=== PATIENT | female | born 1935 | race Hispanic/Latino ===

== ENCOUNTER 2017-08-01 12:52 | Outpatient (CLI) | payer MEDICARE, BC | END 2017-08-01 12:53 | disposition home or self-care (01) | LOC: BICMAMMO 12:52 | PROVIDERS: ATTEND Internal Medicine | DX: Z12.31 Encounter for screening mammogram for malignant neoplasm of breast (principal) | CPT/HCPCS: 77063 ==

== ENCOUNTER 2019-09-23 00:48 | Emergency (ER) | payer MEDICARE, BC ==
[2019-09-23 01:22] LABS: #Eosinphils 0.1 thou/uL (0.0-0.7); #Lymphocytes 2.2 thou/uL (1.20-3.40); #Monocytes 0.5 thou/uL (0.11-0.59); #Neutrophils 2.8 thou/uL (1.40-6.50); %Basophils 0.9 % (0.0-1.0); %Eosinophils 1.4 % (0.0-10.0); %Lymphocytes 38.6 % (21.0-51.0); %Monocytes 8.5 % (0.0-10.0); %Neutrophils 50.7 % (42.0-75.0); Hemoglobin 13.6 g/dL (12.0-16.0); Mean Corpuscular Hemoglobin 32.4 pg (27.0-31.0); Mean Corpuscular Volume 98.1 fL (78.0-98.0); Mean Platelet Volume 7.1 fL (7.4-10.4); Platelet Count 241 thou/uL (130-400); RBC Distribution Width 11.8 % (11.5-14.5); Red Blood Cell (RBC) Count 4.21 mill/uL (4.20-5.40); White Blood Cell (WBC) Count 5.6 thou/uL (4.8-10.8)
[2019-09-23 01:50] LABS: ALT (SGPT) 16 U/L (8-55); AST (SGOT) 26 U/L (5-34); Albumin 4.5 g/dL (3.4-4.8); Alkaline Phosphatase 61 U/L (40-110); Anion Gap 15 mmol/L (10-20); BUN (Urea Nitrogen) 12 mg/dL (9.8-20.1); Bilirubin, Total 0.7 mg/dL (0.2-1.2); CK (CPK) 125 U/L (29-168); Calc. Creatinine Clearance 0 mL/min (70-130); Calcium 9.5 mg/dL (7.8-10.44); Carbon Dioxide 24 mmol/L (23-31); Chloride 99 mmol/L (98-107); Estimated GFR-MDRD 70; Globulin 2.9 g/dL (2.4-3.5); Glucose 115 mg/dL (83-110); Potassium 3.9 mmol/L (3.5-5.1); Protein, Total 7.4 g/dL (6.0-8.3); Sodium 134 mmol/L (136-145)
== END 2019-09-23 02:36 | disposition home or self-care (01) ==
LOC: ERS 00:48
DX: I10 Essential (primary) hypertension (principal); Z85.3 Personal history of malignant neoplasm of breast; Z79.899 Other long term (current) drug therapy
CPT/HCPCS: 36415; 80053; 82550; 84484; 85025; 93005

== ENCOUNTER 2022-03-29 13:05 | Outpatient (CLI) | payer MEDICARE | END 2022-03-29 13:06 | disposition home or self-care (01) | LOC: LABBT 13:05 | PROVIDERS: ATTEND Ophthalmology Retina Specialist | DX: H35.371 Puckering of macula, right eye (principal); Z20.822 Contact with and (suspected) exposure to COVID-19 | CPT/HCPCS: 87811 ==

== ENCOUNTER 2022-04-03 08:02 | Day surgery (SDC) | payer MEDICARE ==
[2022-03-30 12:04] VITALS: BMI 22.6
[~2022-04-03 08:02] MED LIST: EPINEPHrine 0.3 MG in Ophthalmic Irrigation Solution 500 ML IRR SCH; Midazolam HCl 2 mg/2 ml Vial ONE; fentaNYL Citrate/PF 100 MCG/2 ML SYRINGE ONE
[2022-04-03] MEDS ORDERED: Cyclopentolate 1% Opth Drop 2 ML BOT ONE (08:13)
[2022-04-03] MEDS ORDERED: Phenylephrine 2.5% Ophth Soln 5 ML BOT ONE (08:13)
[2022-04-03] MEDS ORDERED: Indocyanine Green 25 MG/10 ML VIAL ONE (08:49)
[2022-04-03] MEDS ORDERED: CEFAZOLIN 1 GM VIAL ONE (08:49)
[2022-04-03] MEDS ORDERED: Triamcinolone 40 MG/ML VIAL ONE (08:49)
[2022-04-03] MEDS ORDERED: Maxitrol 0.1% Opth Oint 3.5 GM TUBE ONE (08:49)
[2022-04-03] MEDS ORDERED: Bupivacaine 0.75% 10 ML VIAL ONE (08:49)
[2022-04-03] MEDS ORDERED: Lidocaine 4% PF 5 ML AMP ONE (08:49)
[2022-04-03] MEDS ORDERED: Lidocaine 1% PF 5 ML VIAL ONE (08:49)
[2022-04-03] MEDS ORDERED: PROPOFOL 200 MG/20 ML VIAL ONE (08:49)
== END 2022-04-03 10:14 | disposition home or self-care (01) ==
LOC: SDC 08:02
PROVIDERS: ATTEND Ophthalmology Retina Specialist
PROC: 08T43ZZ Resection of Right Vitreous, Percutaneous Approach (ICD-10-PCS; principal; 2022-04-03)
PROC: 08NE3ZZ Release Right Retina, Percutaneous Approach (ICD-10-PCS; 2022-04-03)
DX: H35.371 Puckering of macula, right eye (principal); Z79.899 Other long term (current) drug therapy; Z95.0 Presence of cardiac pacemaker; Z96.1 Presence of intraocular lens
CPT/HCPCS: J0171; J0690; J2250; J2704; J3301; J3490